=== PATIENT | male | born 1990 | race Caucasian/White ===

== ENCOUNTER → 2017-05-16 | Outpatient (CLI) | payer OTHER ==
[2017-05-16 14:58] LABS: Specimen Source URINE
[2017-05-17 13:15] LABS: Source Urine
== END ==
LOC: LAB UCHC 14:57 → LAB SHORT 14:57
PROVIDERS: Nurse Practitioner Primary Care
DX: Z20.2 Contact with and (suspected) exposure to infections with a predominantly sexual mode of transmission (principal)
CPT/HCPCS: 87491; 87591

== ENCOUNTER 2020-05-22 21:52 | Emergency (ER) | payer OTHER ==
[~2020-05-22] VITALS: Ht 180.3 cm; Wt 113.4 kg
== END 2020-05-23 00:06 | disposition home or self-care (01) ==
LOC: ER 21:52
DX: S61.411A Laceration without foreign body of right hand, initial encounter (principal); F17.200 Nicotine dependence, unspecified, uncomplicated; Z88.0 Allergy status to penicillin; W25.XXXA Contact with sharp glass, initial encounter
CPT/HCPCS: 12001; 90471; 90714; 99282-25

== ENCOUNTER 2020-08-08 21:46 | Emergency (ER) | payer OTHER ==
[~2020-08-08] VITALS: Ht 180.3 cm; Wt 111.1 kg
== END 2020-08-08 21:56 | disposition home or self-care (01) ==
LOC: ER 21:46
DX: Z02.89 Encounter for other administrative examinations (principal); Z88.0 Allergy status to penicillin
CPT/HCPCS: 99282